=== PATIENT | male | born 1950 | race Caucasian/White ===

== ENCOUNTER 2023-06-13 03:55 | Emergency (ER) | payer MEDICARE, SELFPAY ==
[2023-06-13] VITALS (28 sets, daily range): BP systolic 87–148; BP diastolic 61–75; PULSE 47–80; RESP 14–22; TEMP 36.4; O2SAT 92–100
--- NOTE | ~2023-06-13 | XR_ITS ---
Portable chest x-ray Comparison: None Clinical History: Trauma, hemothorax Findings: There is diffuse hazy increased opacity of the left hemithorax as compared to the right. T here is focal lucency along the left heart border, which could indicate small basilar pneumothorax. R ight lung is essentially clear. Cardiomediastinal silhouette is unremarkable. Osseous structures grupo ear intact. There is subcutaneous emphysema over the left hemithorax.. Impression: Diffuse hazy increased opacity at the left hemithorax as compared to the right. Findings could reflec t layering pleural effusion or diffuse asymmetric parenchymal disease in the left lung such as pulmon milly hemorrhage given history of trauma. Consider CT to further evaluate. Possible small left basilar pneumothorax. Subcutaneous/soft tissue emphysema over the left hemithorax. Reviewed, dictated and finalized at [facility]. Impression: Diffuse hazy increased opacity at the left hemithorax as compared to the right. Findings could reflect layering pleural effusion or diffuse asymmetric parench ymal disease in the left lung such as pulmonary hemorrhage given history of tra boris. Consider CT to further evaluate. Possible small left basilar pneumothorax. Subcutaneous/soft tissue emphysema over the left hemithorax.
--- NOTE | ~2023-06-13 | CT_ITS ---
CT Facial Bones and Cervical Spine Clinical Indication: Trauma Technique: Contiguous axial scans were obtained through the facial bones and cervical spine followed by coronal and sagittal reconstructions. Dose reduction technique was used on this scan by utilizing automated exposure control and iterative reconstruction technique. The dose-length product (DLP) was 549.17 mGy-cm. Findings: CT facial bones: There is probable angulated fracture of the vomer. No other fracture identified. The re is soft tissue swelling of the nose, with probable tiny foreign body superficially in the nose (ax ial image 78). The visualized paranasal sinuses are clear. Intraorbital soft tissues appear normal. CT cervical spine: No fractures or subluxation. There is moderate degenerative disc narrowing at C5- C6. There is multilevel mild facet arthropathy. There is probable mild left neural foraminal narrowin g at C3-C4. There is right neural foraminal narrowing at C5-C6. No prevertebral soft tissue swelling. Incidental note is made of extensive subcutaneous/soft tissue emphysema, predominantly in the left ne ck. Impression: Probable angulated fracture of the vomer. Soft tissue swelling of the nose with possible tiny foreign body. No fracture or subluxation of the cervical spine. Mild degenerative change, as above. Extensive subcutaneous/soft tissue emphysema, predominantly in the left neck. Reviewed, dictated and finalized at location . Impression: Probable angulated fracture of the vomer. Soft tissue swelling of the nose with possible tiny foreign body. No fracture or subluxation of the cervical spine. Mild degenerative change, as above. Extensive subcutaneous/soft tissue emphysema, predominantly in the left neck.
--- NOTE | ~2023-06-13 | CT_ITS ---
Non-contrast Head CT History: Head injury Technique: Axial non-contrast imaging of the brain was performed. Dose reduction technique was used on this scan by utilizing automated exposure control and iterative reconstruction technique. The dose -length product (DLP) was 681.00 mGy-cm. Findings: There is no evidence of intracranial hemorrhage, mass lesion, or acute infarct. Brain par enchyma appears normal. The ventricles and subarachnoid spaces are normal in size. The calvarium ap pears normal. The visualized paranasal sinuses and mastoid air cells are clear. Impression: No significant abnormality seen. Reviewed, dictated and finalized at location . Impression: No significant abnormality seen.
--- NOTE | ~2023-06-13 | XR_ITS ---
Portable chest x-ray Comparison: 06/13/2023 at 4:24 AM Clinical History: Chest tube placement Findings: There is been interval placement of left-sided chest tube. The probable small left pneumot horax is decreased from prior exam, with possible minimal remaining pneumothorax at the left lung bas e. There is improved aeration is decreased density of the left lung as compared to prior exam, with m ild residual haziness. Right lung remains clear. Cardiomediastinal silhouette is stable. Stable soft tissue/subcutaneous emphysema over the left hemithorax. Impression: Interval placement of left-sided chest tube with probable minimal residual left pneumothorax, decreas ed from prior exam. Residual haziness especially in the perihilar region and left lung, with overall improvement from carlene or exam. This could reflect decreased layering effusion as compared to prior exam. Right lung remains clear. Reviewed, dictated and finalized at location . Impression: Interval placement of left-sided chest tube with probable minimal residual left pneumothorax, decreased from prior exam. Residual haziness especially in the perihilar region and left lung, with overal l improvement from prior exam. This could reflect decreased layering effusion a s compared to prior exam. Right lung remains clear.
--- NOTE | ~2023-06-13 | CT_ITS ---
Clinical Indication: Trauma, hemopneumothorax, left flank bruise CT Scan of the Chest, Abdomen, and Pelvis with Contrast: Technique: Contiguous sections were acquired throughout the chest, abdomen, and pelvis after intraven ous administration of 100 cc of Omnipaque 350. Dose reduction technique was used on this scan by uti lizing automated exposure control and iterative reconstruction technique. The dose-length product (DL P) was 1757.27 mGy-cm. Findings: There is no evidence of any significant mediastinal, hilar or axillary lymphadenopathy. There is pneu momediastinum. No aortic aneurysm or dissection. No pulmonary embolus seen. No pericardial effusion. There is a moderate, hyperdense left effusion, compatible with hemothorax. There is also small anteri or left basilar pneumothorax. Left chest tube in place. There is minimal bibasilar atelectatic change . There is extensive subcutaneous/soft tissue emphysema, especially along the left flank and left back, as well as in the left neck. There is an oblique, nondisplaced fracture the posterior left 10th rib. There is a transverse, essentially nondisplaced fracture of the posterolateral left ninth rib. The liver, spleen, gallbladder, left adrenal gland, and kidneys are within normal limits. 1.2 cm righ t adrenal nodule is indeterminate based on this exam. There is a 1.3 cm hypodense, possible cystic ma ss at the pancreatic head (axial image 163). There are atherosclerotic calcifications of the aorta. No lymphadenopathy. No bowel obstruction or bowel wall thickening. There is no evidence to suggest acute appendicitis. Urinary bladder is unremarkable. Prostate gland and seminal vesicles are unremarkable. No ascites. Impression: Moderate left hemothorax with additional small anterior, basilar left pneumothorax. Left-sided chest tube in place. Essentially nondisplaced fractures of the left ninth and 10th ribs, as detailed above. Pneumomediastinum as well as extensive, predominantly left-sided, soft tissue/subcutaneous emphysema. No acute posttraumatic abnormality seen in the abdomen or pelvis. 1.3 cm hypodense mass at the pancreatic head, possibly cystic. Pre and postcontrast follow-up MR leyda mmended to further assess this lesion. 1.2 cm indeterminate right adrenal nodule. Statistically, this is most likely adenoma. This can also be further assessed with MR imaging. Reviewed, dictated and finalized at location . Impression: Moderate left hemothorax with additional small anterior, basilar left pneumotho rax. Left-sided chest tube in place. Essentially nondisplaced fractures of the left ninth and 10th ribs, as detailed above. Pneumomediastinum as well as extensive, predominantly left-sided, soft tissue/s ubcutaneous emphysema. No acute posttraumatic abnormality seen in the abdomen or pelvis. 1.3 cm hypodense mass at the pancreatic head, possibly cystic. Pre and postcont rast follow-up MR recommended to further assess this lesion. 1.2 cm indeterminate right adrenal nodule. Statistically, this is most likely a denoma. This can also be further assessed with MR imaging.
--- NOTE | 2023-06-13 04:15 | PC.NURSE ---
Pt given 1L of EMS NS and 1L LR due to low bp.
--- NOTE | 2023-06-13 04:15 | PC.NURSE ---
Pt given 50mcg IV push fentanyl per FARIBA Carranza
--- NOTE | 2023-06-13 04:19 | ECG_ITS ---
Measurements Intervals [place] Rate: 68 P: 43 WV: 161 QRS: 66 QRSD: 112 T: 53 QT: 404 QTc: 432 Interpretive Statements SINUS RHYTHM INTRAVENTRICULAR CONDUCTION DELAY BORDERLINE ECG NO PREVIOUS ECG AVAILABLE FOR COMPARISON Electronically Signed On 06-13-2023 9:10:03 CDT by Fabián Lombardi D.O.
--- NOTE | 2023-06-13 04:24 | ED.SYNCOPE ---
HPI - Syncope General Chief Complaint: Syncope Stated Complaint: syncope Time Seen by Provider: 06/13/23 03:59 Source: patient Limitations: no limitations History of Present Illness HPI narrative: Patient is a 73-year-old male present to the emergency department for syncope. Patient states on Friday he had a mechanical ground-level fall and ended up developing a bruise on his left flank region and thinks he may have fractured some ribs and he talk to his primary care physician who told him on the supportive care measures so he has been taking pain medications but has not seen anybody for this or had any imaging. Patient denies any use of blood thinners. Patient notes that he was managing the pain well however approximately 1 hour prior to arrival he started developing some left-sided chest pain and shortness of breath and became lightheaded and had a syncopal episode for which EMS was called and EMS also witnessed the patient have multiple syncopal episodes and was found to have a low blood pressure and was given IV fluids in route and brought immediately to the emergency department. Patient denies use of anticoagulation. Patient denies history of syncopal episodes in the past. Patient admits to hitting his face on the ground. No seizure activity reported. Patient denies abdominal pain, urinary incontinence, stool incontinence, back pain, neck pain, headache, vision changes, difficulty swallowing, numbness, weakness, decreased range of motion of his extremities, hematuria, melena, hematochezia. Patient notes his last tetanus was a couple months ago. Related Data Allergies Allergy/AdvReac Type Severity Reaction Status Date / Time No Known Allergies Allergy Verified 06/13/23 04:27 Review of Systems Review of Systems: A 10 system review of systems was completed on the patient and is negative except for what is stated in the HPI. Nursing and ancillary documentation was reviewed. [facility] Comments At time of signature, I have reviewed and agree with nursing past medical, surgical, social and family history unless otherwise noted. Please see the nursing chart for further information. There is no relevant family history pertinent to the presenting complaint. Exam Narrative: GENERAL: well-developed, conversant, moderate acute distress complaining of left chest pain and shortness of breath. HEAD: Normocephalic without edema. Midface stable. EYES: PERRL. No scleral icterus or conjunctival injection. EOM intact without nystagmus. No proptosis or enophthalmos. NOSE: No discharge, mild tenderness to palpation of the nasal bridge with associated edema, no laxity. No nasal septal hematoma. Scant dried blood in the bilateral nares. 1.5 cm linear hemostatic laceration to the nasal bridge depth of 0.2 cm, small foreign body present and removed during repair. MOUTH: Dry mucous membranes without blood. No malocclusion or trismus. Dentition grossly intact. Posterior pharynx without erythema or exudates. NECK: Trachea midline. Crepitus of the left anterior neck. No discolorations. No stridor. CV: RRR, no murmurs. 2+ radial and dorsalis pedis pulses bilaterally. Capillary refill <3 seconds. No extremity edema. CHEST: Absent breath sounds on the left chest with the right chest clear to auscultation. Crepitus palpated diffusely throughout the left chest wall and left supraclavicular region. Moderate chest wall tenderness over the left lateral inferior ribs with overlying ecchymosis, no obvious step-offs of the ribs, no breaks in the skin, mild edema. Asymmetric chest wall excursion with minimal excursion on the left chest wall with respirations. ABDOMEN: Soft, non-distended, non tender. No masses. Left flank ecchymosis. BACK: No abrasions, skin openings, or ecchymosis. Spine without bony tenderness, no step offs. PELVIC: Pelvis stable and non tender. : Normal external genitalia without blood at meatus. No ecchymosis or edema. MSK: No gross deformities or
[2023-06-13 04:29] LABS: Glucose Point of Care 249 mg/dl (65-105)
[2023-06-13 04:43] LABS: Basophils Percent Auto 0.3 % (0.2-1.2); Eosinophils Absolute Auto 0.1 K/mm3 (0-0.3); Eosinophils Percent Auto 1.2 % (0-4.4); Hematocrit 32.5 % (42.0-52.0); Hemoglobin 10.4 g/dL (14.0-18.0); Immature Granulocyte Absolute 0.09 K/mm3 (0.00-0.031); Immature Granulocyte Percent A 0.8 % (0-0.5); Lymphocytes Absolute Auto 1.35 K/mm3 (0.9-3.2); Lymphocytes Percent Auto 11.6 % (18.3-44.2); Mean Corpuscular Volume 93.7 fl (80-100); Monocytes Absolute Auto 0.7 K/mm3 (0.1-0.6); Monocytes Percent Auto 5.6 % (2.6-8.5); Neutrophils Absolute Auto 9.3 K/mm3 (1.3-6.7); Neutrophils Percent Auto 80.5 % (45.5-73.1); Platelet Count Result 215 k/mm3 (150-375); Red Blood Count 3.47 M/mm3 (4.6-6.20); Red Cell Distribution Width 14.1 % (11.5-14.5); White Blood Count 11.6 K/mm3 (4.5-10.0)
--- NOTE | 2023-06-13 04:53 | PC.NURSE ---
Pt given 50mcg fentanyl per verbal read back order Dr. Carranza
[2023-06-13 04:54] LABS: Ethanol < 10 mg/dL (<10); INR 1.1; Prothrombin Time 14.8 Seconds (11.1-14.7)
[2023-06-13 04:55] LABS: Partial Thromboplastin Time 22.9 SECONDS (22.3-36.8)
[2023-06-13 05:06] LABS: NT Pro B Type Natriuretic Pept 29 pg/mL (19.9-100); Troponin I < 0.012 ng/mL (0.000-0.034)
[2023-06-13 05:15] LABS: Alanine Aminotransferase 24 U/L (6-50); Albumin Level 2.6 g/dL (3.5-5.1); Alkaline Phosphatase 65 U/L (38-126); Anion Gap 2 mmol/L (8-16); Aspartate Amino Transferase 24 U/L (17-59); Bilirubin,Total 0.5 mg/dL (0.2-1.3); Blood Urea Nitrogen 24 mg/dL (9-20); Calcium 8.5 mg/dL (8.4-10.2); Carbon Dioxide 26 mmol/L (22-30); Chloride 104 mmol/L (98-107); Estimated Glomerular Filt Rate > 60; Glucose 242 mg/dL (65-110); Lipase 118 U/L (23-300); Magnesium 2.1 mg/dL (1.6-2.3); Potassium 4.2 mmol/L (3.4-5.0); Sodium 132 mmol/L (137-145)
[2023-06-13 05:44] LABS: Creatine Kinase 72 U/L (55-170)
--- NOTE | 2023-06-13 06:59 | PC.NURSE ---
[id number] [facility] Evac accepted placed on standby
--- NOTE | 2023-06-13 07:16 | PC.NURSE ---
Per [facility] pt. needs a unit of blood brought with pt. during transport to facility due to possible change in patient condition.
--- NOTE | 2023-06-13 07:34 | PC.NURSE ---
2500 ml blood drained from chest tube
[2023-06-13 07:50] LABS: Influenza A QL RT-PCR Negative (Negative); Influenza B QL RT-PCR Negative (Negative); SARS-CoV-2 RNA PCR Negative (Negative)
== END 2023-06-13 07:15 | disposition short-term general hospital (02) ==
PROVIDERS: Emergency Provider Student in an Organized Health Care Education/Training Program
DX: R55 Syncope and collapse (principal); S02.2XXA Fracture of nasal bones, initial encounter for closed fracture; S01.21XA Laceration without foreign body of nose, initial encounter; S27.2XXA Traumatic hemopneumothorax, initial encounter; S22.42XA Multiple fractures of ribs, left side, initial encounter for closed fracture; R06.02 Shortness of breath; Z20.822 Contact with and (suspected) exposure to COVID-19; W18.39XA Other fall on same level, initial encounter; W18.30XA Fall on same level, unspecified, initial encounter; K86.9 Disease of pancreas, unspecified; E27.9 Disorder of adrenal gland, unspecified; I45.9 Conduction disorder, unspecified
CPT/HCPCS: 12011; 32551; 36415; 36430; 70450; 70486; 71045; 71260; 72125; 74177; 80053; 80307; 82550; 82948; 83690; 83735; 83880; 84484; 85025; 85610; 85730; 86850; 86900; 86901; 86923; 87636; 93005; 96361; 96374; 96376; 99291; C1729; J3010; J7120; P9016; Q9967

== ENCOUNTER 2023-06-27 12:00 | Outpatient (CLI) | payer MEDICARE, SELFPAY ==
--- NOTE | ~2023-06-27 | XR_ITS ---
XR chest 2V DATE: 06/27/2023 12:22 INDICATION: Left pneumothorax TECHNIQUE: PA and lateral views COMPARISON: 06/13/2023 portable AP chest examinations before and after chest tube placement 06/13/2023 CT chest abdomen pelvis FINDINGS: There is interval withdrawal of the left chest tube since 06/13/2023. Multiple air-fluid levels of the left chest are noted, likely due to loculated hydropneumothoraces. There is prominent patchy consolidation of the left lung. The right lung appears essentially clear. No right pleural effusion or right pneumothorax. Heart size is not optimally assess due to obliteration of the left cardiac margin by the surrounding consolidation. There is aortic calcification. Diffuse osteopenia. IMPRESSION: Removal left chest tube since 06/13/2023 Multiple air-fluid levels of the left thorax likely due to loculated hydropneumothoraces Extensive patchy left lung consolidation Reviewed, dictated and finalized at location [facility]. IMPRESSION: Removal left chest tube since 06/13/2023 Multiple air-fluid levels of the left thorax likely due to loculated hydropneum othoraces Extensive patchy left lung consolidation
== END 2023-06-27 12:01 | disposition home or self-care (01) ==
LOC: ANHIMG 12:08
DX: J93.9 Pneumothorax, unspecified (principal); J18.1 Lobar pneumonia, unspecified organism
CPT/HCPCS: 71046